=== PATIENT | female | born 1935 | race Caucasian/White ===

== ENCOUNTER 2016-11-26 13:49 | Emergency (ER) | payer MEDICARE ==
[2016-11-26 14:44] LABS: INR W/ CAPI DRAW 1.9 (0.8-1.2)
[2016-11-26 14:49] LABS: ARTERIAL BLOOD GAS PCO2 34.5 mmHg (35-45)
[2016-11-26 14:50] LABS: ARTERIAL BLOOD GAS HCO3 22.5 mmol/L (22-26)
[2016-11-26] MEDS ORDERED: ENOXAPARIN SODIUM 100 MG/ML SYR SUBCUT ONE (16:16)
--- NOTE | 2016-11-26 16:16 | ER NURSING DOCUMENTATION ---
Nurse's Notes [facility] Name:Yudith Greenberg Age:81 yrs Sex:Female :1935 Arrival Date:11/26/2016 Time:13:49 Bed4 Private MD: Diagnosis:Pulmonary Embolism;Hypoxia Presentation: 11/26 14:16 Presenting complaint: Patient states: Dr Fernando is concerned about a blood clot. cb Transition of care: [facility]. 14:16 Method Of Arrival: Private Vehicle cb 14:16 Acuity: GEORGI 3 cb Triage Assessment: 14:18 General: Appears in no apparent distress, well groomed, Behavior is cooperative. EENT: cb No deficits noted. Neuro: Level of Consciousness is awake, alert, Oriented to person, place, time, event. Cardiovascular: Pulses are 2+ in right radial artery and left radial artery. Cardiovascular: Reports swelling in both legs. Respiratory: Airway is patent Trachea midline Respiratory effort is even, unlabored, Respiratory pattern is regular, symmetrical, Reports shortness of breath at rest. GI: Reports tolerance of fluids, tolerance of food. : No deficits noted. Derm: No deficits noted. Musculoskeletal:. 14:31 Pain: Denies pain. cb Historical: - PMHx: PE; - Tetanus: < 10 years. - Ebola Screening: : Patient negative for fever greater than or equal to 101.5 degrees Fahrenheit, and additional compatible Ebola Virus Disease symptoms. Patient denies exposure to infectious person. Patient denies travel to an Ebola-affected area in the 21 days before illness onset. No symptoms or risks identified at this time. . - Immunization history: Flu Vaccine < 1 year. - Social history: Smoking status: Patient states former smoker of tobacco. Screenin:57 Infectious Disease Risk None. Abuse screen: Denies threats or abuse. Denies injuries cb from another. Nutritional screening: No deficits noted. Vital Signs: 14:01 BP 152 / 81 (auto/); cb 14:04 Pulse Ox 90% ; cb 14:15 BP 151 / 63 (auto/); cb 14:29 Pulse Ox 92% ; cb 14:30 BP 138 / 67 (auto/); cb 14:31 BP 138 / 67; Pulse 65; Resp 22; Temp 98.5(TE); Pulse Ox 88% on R/A; Weight 74.84 kg; cb Height 5 ft. 5 in. (165.10 cm); Pain 0/10; 14:44 Pulse Ox 90% ; cb 14:45 BP 135 / 64 (auto/); cb 14:59 Pulse Ox 90% ; cb 15:00 BP 132 / 62 (auto/); cb 15:14 Pulse Ox 89% ; cb 15:15 BP 144 / 67 (auto/); cb 15:29 Pulse Ox 90% ; cb 15:30 BP 143 / 71 (auto/); cb 15:44 Pulse Ox 90% ; cb 15:45 BP 137 / 63 (auto/); cb 14:31 Body Mass Index 27.46 (74.84 kg, 165.10 cm) cb ED Course: 14:01 Patient arrived in ED. cj 14:07 Karena Arambula, RN is Primary Nurse. cb 14:12 Medardo Murphy MD is Attending Physician. ga 14:17 Triage completed. cb 15:58 Labs drawn. By Lab Staff. cb 15:58 Valuables Remains with patient Patient has correct armband on for positive cb identification. Placed in gown. Bed in low position. Call light in reach. Adult w/ patient. Pulse ox on. NIBP on. 16:02 Diet: Patient given water. cb 16:08 Lisset Fernando MD is Referral Physician. sc Administered Medications: 16:03 Drug: Lovenox 100 mg; Route: Sub-Q; Site: right lower abdomen; [facility] [place] Outcome: 16:09 Discharge ordered by . ga 16:14 Discharged to home ambulatory. [facility] [place] 16:14 Condition: stable 16:14 Discharge instructions given to patient, Instructed on Demonstrated understanding of instructions, medications. 16:15 Patient left the ED. [facility] [place] 11/27 09:20 Discharge F/U Call: Unable to reach: left voicemail: lp Signatures: Karena Arambula, Therese Eugene RN, cb, RN RN [facility] Gypsy Avila RN RN lp Chew, Scott, MD MD ga Elizabeth Griffith
--- NOTE | 2016-11-26 16:16 | ER PHYSICIAN DOCUMENTATION ---
Physician Documentation [facility] Name:Yudith Greenberg Age:81 yrs Sex:Female :1935 Arrival Date:11/26/2016 Time:13:49 Bed4 Private MD: Medardo Bingham Disposition: 11/26 16:08 Critical Care: not applicable. sc Disposition: 11/26/16 16:09 Discharged to Home/Self Care. Impression: Pulmonary Embolism, Hypoxia. - Condition is Good. - Discharge Instructions: COUMADIN COAGULOPATHY, DYSPNEA. - Medical Reconciliation form form. - Follow up: Lisset Fernando MD; When: Tomorrow. - Problem is an ongoing problem. - Symptoms have improved. HPI: 16:03 This 81 yrs old Female presents to ER via Private Vehicle with complaints of sc sob. 16:05 The patient has shortness of breath with light activity. Onset: The symptom(s)/episode sc began/occurred today. Duration: The symptoms are continuous, and are unchanged since they started, are intermittent. The patient's shortness of breath has no apparent modifying factors. Associated signs and symptoms: The patient has no apparent associated signs or symptoms. INR not therapeutic, recent PE with embolectomy, sxs much less than primary PE. Historical: - PMHx: PE; - Tetanus: < 10 years. - Ebola Screening: : Patient negative for fever greater than or equal to 101.5 degrees Fahrenheit, and additional compatible Ebola Virus Disease symptoms. Patient denies exposure to infectious person. Patient denies travel to an Ebola-affected area in the 21 days before illness onset. No symptoms or risks identified at this time. . - Immunization history: Flu Vaccine < 1 year. - Social history: Smoking status: Patient states former smoker of tobacco. ROS: 16:06 Constitutional: Negative for fever, chills, and weight loss. sc Eyes: Negative for injury, pain, redness, and discharge. ENT: Negative for injury, pain, and discharge. Neck: Negative for injury, pain, and swelling. Cardiovascular: Negative for chest pain, palpitations, and edema. Abdomen/GI: Negative for abdominal pain, nausea, vomiting, diarrhea, and constipation. Back: Negative for injury and pain. MS/Extremity: Negative for injury and deformity. Skin: Negative for injury, rash, and discoloration. 16:06 Neuro: Negative for headache, weakness, numbness, tingling, and seizure. sc 16:06 Respiratory: Positive for shortness of breath. Exam: Constitutional: This is a well developed, well nourished patient who is awake, alert, and in no acute distress. Head/Face: Normocephalic, atraumatic. Eyes: Pupils equal round and reactive to light, extra-ocular motions intact. Lids and lashes normal. Conjunctiva and sclera are non-icteric and not injected. Cornea within normal limits. Periorbital areas with no swelling, redness, or edema. Neck: Trachea midline, no thyromegaly or masses palpated, and no cervical lymphadenopathy. Supple, full range of motion without nuchal rigidity, or vertebral point tenderness. No meningismus. Chest/axilla: Normal chest wall appearance and motion. Nontender with no deformity. No lesions are appreciated. Cardiovascular: Regular rate and rhythm with a normal S1 and S2. No gallops, murmurs, or rubs. Normal PMI, no JVD. No pulse deficits. Respiratory: Lungs have equal breath sounds bilaterally, clear to auscultation and percussion. No rales, rhonchi or wheezes noted. No increased work of breathing, no retractions or nasal flaring. Abdomen/GI: Soft, non-tender, with normal bowel sounds. No distension or tympany. No guarding or rebound. No evidence of tenderness throughout. Back: No spinal tenderness. No costovertebral tenderness. Full range of motion. 16:07 Skin: Warm, dry with normal turgor. Normal color with no rashes, no lesions, and no sc evidence of cellulitis. 16:07 Cardiovascular: Rate: normal, Rhythm: regular. 16:07 Respiratory: the patient does not display signs of respiratory distress, Respirations: tachypnea, that is mild, Breath sounds: are normal, clear throughout. Vital Signs: 14:01 BP 152 / 81 (auto/); cb 14:04 Pulse Ox 90% ; cb 14:15 BP 151 / 63 (auto/); cb 14:29 Pulse Ox 92% ; cb 14:30 BP 138 / 67 (auto/); cb 14:31 BP 138 / 67; Pulse 65; Resp 22; Temp 98.5(TE); Pulse Ox 88% on R/A; Weight 74.84 kg; cb Height 5 ft. 5 in. (165.10 cm); Pain 0/10; 14:44 Pulse Ox 90% ; cb 14:45 BP 135 / 64 (auto/); cb 14:59 Pulse Ox 90% ; cb 15:00 BP 132 / 62 (auto/); cb 15:14 Pulse Ox 89% ; cb 15:15 BP 144 / 67 (auto/); cb 15:29 Pulse Ox 90% ; cb 15:30 BP 143 / 71 (auto/); cb 15:44 Pulse Ox 90% ; cb 15:45 BP 137 / 63 (auto/); cb 14:31 Body Mass Index 27.46 (74.84 kg, 165.10 cm) cb MDM: 14:12 Patient medically screened. ky 16:07 Differential diagnosis: Anemia Chronic Obstructive Pulmonary Disease Pulmonary sc Embolism. Antibiotic administration: Not indicated. Data reviewed: vital signs, nurses notes, lab test result(s), radiologic studies, and as a result, I will discharge patient. Data interpreted: Pulse oximetry: on room air is 88 %. 16:10 Physician consultation: Lisset Fernando MD was called at 16:10, was contacted at 16:10, ky regarding patient's condition, need to evaluate the patient as soon as possible, Patient declines O2 today. Agreed she would not repeat embolectomy with current symptoms so focus on managing anticoagulation.. 11/26 14:45 Order name: INR W/ CAPI DRAW; Complete Time: 15:44 EDMS 11/26 15:25 Interpretation: Abnormal: INR W/ CAPI DRAW 1.9; anticoagulated. ky 11/26 14:45 Order name: ARTERIAL BLOOD GAS; Complete Time: 15:44 EDMS 0502 15:44 Interpretation: Abnormal. ky Dispensed Medications: 16:03 Drug: Lovenox 100 mg; Route: Sub-Q; Site: right lower abdomen; sc1 Signatures: Karena Arambula RN RN cb Campbell, Sandy, RN RN ky1 Medardo Murphy MD MD ky
== END 2016-11-26 16:15 | disposition home or self-care (01) ==
LOC: ER 13:49
DX: I26.99 Other pulmonary embolism without acute cor pulmonale (principal); R09.02 Hypoxemia; M79.89 Other specified soft tissue disorders; R79.1 Abnormal coagulation profile; Z79.01 Long term (current) use of anticoagulants; J44.9 Chronic obstructive pulmonary disease, unspecified; Z79.899 Other long term (current) drug therapy; Z86.711 Personal history of pulmonary embolism; Z98.890 Other specified postprocedural states
CPT/HCPCS: 36600; 82803; 85610; 93010; 96372; 99283; 99285; J1650